=== PATIENT | female | born 2005 | race Caucasian/White ===

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

== ENCOUNTER 2023-07-02 12:42 | Inpatient (IN) | payer BC, OTHER ==
[2023-07-02] MEDS ORDERED: TRANEXAMIC 1,000 MG/100ML-NACL 1,000 MG in EMPTY BAG 1 BAG IV PRN (13:15)
[2023-07-02] MEDS ORDERED: CARBOPROST TROMETHAMINE 250 MCG/ML 1 ML AMP IM PRN (13:15)
[2023-07-02] MEDS ORDERED: TERBUTALINE 1 MG/ML VIAL SQ PRN (13:15)
[2023-07-02] MEDS ORDERED: miSOPROStoL 200 MCG TAB PO PRN (13:15)
[2023-07-02] MEDS ORDERED: LIDOCAINE 0.5% (PF) 5 MG/ML (50 ML SDV) SQ PRN (13:15)
[2023-07-02] MEDS ORDERED: OXYTOCIN 10 UNIT/ML 1 ML VIAL IM PRN (13:15)
[2023-07-02] MEDS ORDERED: METHYLERGONOVINE 0.2 MG/ML 1 ML AMP IM PRN (13:15)
[2023-07-02 13:24] LABS: Anisocytosis Slight; Basophils % (A) 0 %; Eosinophils # (A) 0.1 k/uL (0-0.7); Eosinophils % (A) 1 %; HCT 32.6 % (34.0-46.0); HGB 10.7 gm/dL (11.4-16.0); Hypochromasia Slight; Lymphocytes % (A) 17 %; MCH 22.8 pg (25.0-35.0); MCHC 32.7 g/dL (31.0-37.0); MCV 69.9 fL (80.0-100.0); Mean Platelet Volume 10.5; Microcytosis Marked; Monocytes # (A) 0.7 k/uL (0-1.0); Monocytes % (A) 6 %; Neutrophils # (A) 8.5 k/uL (1.3-7.7); Neutrophils % (A) 74 %; Platelet Count 197 k/uL (150-450); Poikilocytosis Slight; RBC 4.66 m/uL (3.80-5.40); RDW 17.1 % (11.5-15.5); WBC 11.5 k/uL (4.0-11.0)
[2023-07-02] MEDS: LACTATED RINGERS 1,000 ML IV SCH ×2 (13:30→19:36)
[2023-07-02] MEDS ORDERED: ZOLPIDEM 5 MG TAB PO PRN (16:05)
[2023-07-02] MEDS ORDERED: diphenhydrAMINE 25 MG CAP PO PRN (16:05)
[2023-07-02] MEDS ORDERED: LANOLIN CREAM 5 GM TUBE TOPICAL PRN (16:05)
[2023-07-02] MEDS ORDERED: HYDROCORTISONE 2.5% RECTAL CREAM 30 GM TUBE RECTAL PRN (16:05)
[2023-07-02] MEDS ORDERED: BENZOCAINE/MENTHOL SPRAY 1 GM/SPRAY AEROSOL TOPICAL PRN (16:05)
[2023-07-02] MEDS ORDERED: ACETAMINOPHEN TAB 325 MG TAB PO PRN (16:05)
[2023-07-02] MEDS ORDERED: SIMETHICONE 80 MG CHEWABLE PO PRN (16:05)
[2023-07-02] MEDS ORDERED: diphenhydrAMINE 50 MG CAP PO PRN (16:05)
[2023-07-02] MEDS ORDERED: diphenhydrAMINE 50 MG/ML 1 ML VIAL IVP PRN ×2 (16:05)
[2023-07-02] MEDS ORDERED: OXYTOCIN 30 UNITS/500 ML NS 30 UNIT in SALINE 1 500ML.BAG IV SCH (16:15)
[2023-07-02] MEDS: IBUPROFEN 600 MG TAB PO PRN (18:21)
[2023-07-02] MEDS: SENNOSIDES-DOCUSATE SODIUM 1 EACH TAB PO SCH (19:36)
[2023-07-03] MEDS: IBUPROFEN 600 MG TAB PO PRN ×2 (03:58→11:20)
[2023-07-03] MEDS: LACTATED RINGERS 1,000 ML IV SCH (03:59)
--- NOTE | 2023-07-03 07:40 | P.HPOB ---
History of Present Illness H&P Date: 07/02/23 Chief Complaint: labor 17 year old presents at 39 weeks 3 days in active labor. Her cervix is 8/80/-1. She is stevenson every 2 minutes. heart tones 140 and category 1. Review of Systems All systems: negative Constitutional: Denies chills, Denies fever Eyes: denies blurred vision, denies pain Ears, nose, mouth and throat: Denies headache, Denies sore throat Cardiovascular: Denies chest pain, Denies shortness of breath Respiratory: Denies cough Gastrointestinal: Denies abdominal pain, Denies diarrhea, Denies nausea, Denies vomiting Genitourinary: Denies dysuria, Denies hematuria Musculoskeletal: Denies myalgias Integumentary: Denies pruritus, Denies rash Neurological: Denies numbness, Denies weakness Psychiatric: Denies anxiety, Denies depression Endocrine: Denies fatigue, Denies weight change Past Medical History Past Medical History: No Reported History History of Any Multi-Drug Resistant Organisms: None Reported Past Surgical History: No Surgical Hx Reported Past Anesthesia/Blood Transfusion Reactions: No Reported Reaction Past Psychological History: No Psychological Hx Reported Smoking Status: Never smoker Past Alcohol Use History: None Reported Past Drug Use History: None Reported - Past Family History Father History Unknown: Yes Family Medical History: Cancer Medications and Allergies Allergies Allergy/AdvReac Type Severity Reaction Status Date / Time No Known Allergies Allergy Verified 07/02/23 13:12 Exam Osteopathic Statement: *. No significant issues noted on an osteopathic structural exam other than those noted in the History and Physical/Consult. Vital Signs Temp Pulse Resp BP Pulse Ox 07/03/23 04:00 97.9 F 88 18 116/80 97 07/03/23 00:00 98 F 75 18 119/65 96 07/02/23 20:00 97.5 F L 83 18 123/75 98 07/02/23 17:06 88 16 113/70 07/02/23 16:36 77 16 118/59 07/02/23 16:06 82 16 121/64 07/02/23 15:51 82 16 120/61 07/02/23 15:36 100 16 118/69 07/02/23 15:21 80 16 125/62 07/02/23 15:06 97.5 F L 82 16 131/72 07/02/23 13:21 98.2 F 94 16 122/79 96 Intake and Output 07/02/23 07/03/23 07/03/23 22:59 06:59 14:59 Intake Total 167 500 Output Total 310 Balance -143 500 Intake: Intake, IV Titration 167 Amount Oxytocin 30 Units/500 ml 167 Ns 30 unit In Saline 1 500ml.bag @ Per Protocol IV .Q0M [facility] Rx#:[id number] Oral 500 Output: Estimated Blood Loss 100 Output, Quantitative 210 Blood Loss Other: # Voids 1 1 Heart: Regular rate and rhythm Lungs: Clear to auscultation bilaterally Abdomen: Soft, nontender Extremities: Negative Homans sign Results Result Diagrams: 07/02/23 13:15 Abnormal Lab Results - Last 24 Hours (Table) 07/02/23 Range/Units 13:15 WBC 11.5 H (4.0-11.0) k/uL Hgb 10.7 L (11.4-16.0) gm/dL Hct 32.6 L (34.0-46.0) % MCV 69.9 L (80.0-100.0) fL MCH 22.8 L (25.0-35.0) pg RDW 17.1 H (11.5-15.5) % Neutrophils # 8.5 H (1.3-7.7) k/uL Assessment and Plan (1) Active labor Current Visit: Yes Status: Acute Code(s): [id number] - SNOMED Code(s): 091335878 Plan: 1. Admit to family place 2. Expectant management 3. Anticipate normal vaginal delivery
--- NOTE | 2023-07-03 07:41 | P.PROBDLV ---
Vaginal Delivery Note - . Vaginal Delivery Note: 17 year old presents at 39 weeks 3 days in active labor. Her cervix is 8/80/-1. She is stevenson every 2 minutes. heart tones 140 and category 1. Amniotomy performed at 1319 clear fluid noted. Patient cervix was completely dilated by 1458. She pushed, delivered a viable female over intact perineum at 1501. Head delivered OA, anterior shoulder delivered gentle downward guidance followed by posterior shoulder and rest of body. Nose and mouth bulb suctioned cord clamped and cut, placed on mother's abdomen. Apgars 9, 9, weight 8 pounds 1.6 ounces. Placenta delivered spontaneously, intact with three-vessel cord at 1502. Vagina, cervix, perineum inspected. No lacerations noted. Estimated blood loss 100 mL. Mother and baby in stable condition.
--- NOTE | 2023-07-03 07:43 | P.DS ---
Providers Date of admission: 07/02/23 13:01 Expected date of discharge: 07/03/23 Attending physician: Hilda Mandujano Primary care physician: Stated None - Discharge Diagnosis(es) (1) Active labor Current Visit: Yes Status: Resolved (2) Normal vaginal delivery Current Visit: No Status: Acute Hospital Course: Patient presented in active labor. She underwent a normal vaginal delivery. course has been uneventful. She denies nausea, vomiting, chest pain, shortness of breath or calf pain. Patient will be discharged home day #1 in stable condition to follow-up with me in 6 weeks. Plan - Discharge Summary New Discharge Prescriptions: New Ibuprofen [Motrin] 600 mg PO Q6HR PRN #30 tab PRN Reason: Mild Pain (Scale 1 To 3) Discharge Medication List Ibuprofen [Motrin] 600 mg PO Q6HR PRN #30 tab 07/03/23 [Rx] Follow up Appointment(s)/Referral(s): Hilda Mandujano DO [Doctor of Osteopathic Medicine] - 6 Weeks Discharge Disposition: HOME SELF-CARE
[2023-07-03 08:16] LABS: Anisocytosis Slight; Basophils % (A) 0 %; Eosinophils # (A) 0.1 k/uL (0-0.7); Eosinophils % (A) 1 %; HCT 31.9 % (34.0-46.0); HGB 10.2 gm/dL (11.4-16.0); Hypochromasia Moderate; Lymphocytes # (A) 2.9 k/uL (1.0-4.8); Lymphocytes % (A) 25 %; MCH 22.8 pg (25.0-35.0); MCV 71.1 fL (80.0-100.0); Mean Platelet Volume 8.7; Microcytosis Moderate; Monocytes # (A) 0.7 k/uL (0-1.0); Monocytes % (A) 6 %; Neutrophils # (A) 7.6 k/uL (1.3-7.7); Neutrophils % (A) 66 %; Poikilocytosis Slight; RBC 4.49 m/uL (3.80-5.40); RDW 17.2 % (11.5-15.5); WBC 11.5 k/uL (4.0-11.0)
[2023-07-03] MEDS: SENNOSIDES-DOCUSATE SODIUM 1 EACH TAB PO SCH (08:58)
[2023-07-03 09:26] VITALS: BP 110/68; PULSE 79; RESP 16; TEMP 98
[2023-07-03 11:08] LABS: Large Platelets Present; Platelet Count 160 k/uL (150-450); Polychromasia Present
== END 2023-07-03 15:55 | disposition home or self-care (01) | DRG 807 ==
LOC: FBPOP 12:42 → 4FBP 13:01
PROVIDERS: ADMIT Obstetrics & Gynecology; ATTEND Obstetrics & Gynecology
PROC: 10E0XZZ Delivery of Products of Conception, External Approach (ICD-10-PCS; principal; 2023-07-02)
DX: O80 Encounter for full-term uncomplicated delivery (principal); Z37.0 Single live birth; Z28.310 Unvaccinated for COVID-19; Z3A.39 39 weeks gestation of pregnancy
CPT/HCPCS: 59025; 85025; 86850; 86900; 86901; 99213